=== PATIENT | female | born 1965 | race Caucasian/White ===

== ENCOUNTER 2018-07-28 10:37 | Inpatient (IN) | payer MEDICAID ==
[~2018-07-28] VITALS: Ht 162.6 cm; Wt 97.5 kg
[~2018-07-28 10:37] MED LIST: ALBUTEROL2.5 MG/3 M IH; ALDACTONE100 MG; ALDACTONE100 MG PO; ATENOLOL 25 MG25 M1 PO; ATIVAN0.5 MG PO; ATIVAN1 MG; ATIVAN1 MG PO; AVELOX 400 MG400 MG PO; BACLOFEN 10 MG10 MG PO; BENADRYL PO; BUMEX2 MG PO; BUSPAR; BUSPAR 5 MG TABL5 M1; BUSPAR 5 MG TABL5 M1 PO; BUSPIRONE HCL10 MG PO; CIPROFLOXACIN500 M1 PO; CIPROFLOXACIN500 M3 PO; CLONAZEPAM 0.50.5 M1 PO; CLONAZEPAM PO; CONSTULOSE10 GM/152 PO; DIFLUCAN150 MG PO; DILAUDID 4 MG TA4 M1 PO; DILAUDID 4 MG TA4 MG PO; DIPHENHYDRAMINE25 M3 PO; DULCOLAX PO; EFFEXOR XR150 MG PO; FLONASE 0.05%50 MCG NASAL; GENERLAC10 GM/15 M PO; GLUCOPHAGE1000 MG; GLUCOPHAGE1000 MG PO; GUAIFENESIN/COD10 M1 PO; HCTZ; HUMALOG100 UNIT/1; HUMULIN 50100 UNIT/1 SQ; HYDROCHLOROTH12.5 M1 PO; HYDROCHLOROTHIA25 M1; HYDROCHLOROTHIA25 M1 PO; JANUVIA100 MG; JANUVIA100 MG PO; K-DUR10 MEQ PO; KEFLEX250 MG/5 M PO; KEFLEX500 MG PO; KLOR-CON 10 ER10 MEQ PO; KLOR-CON 1010 MEQ; LACTULOSE10 GM/15 M PO; LANTUS; LANTUS SC; LANTUS SUBQ; LASIX 40 MG TAB40 M1 PO; LASIX 40 MG TAB40 MG PO; LEVAQUIN 500 M500 M2 PO; LEVAQUIN 500 M500 MG PO; LEVOTHROID50 MCG; LISINOPRIL10 MG PO; LISINOPRIL2.5 MG; LISINOPRIL2.5 MG PO; LYRICA 75 MG CA75 MG; LYRICA 75 MG CA75 MG PO; MACROBID 100 M100 M1 PO; MACROBID PO; MAG-OX 400 TAB400 M1 PO; MEDROLDOSEPACK PO; METOCLOPRAMIDE 55 MG PO; MIRALAX; MUCINEX D TABL1 EAC1; MUCINEX600 MG; MULTIVITAMINS1 EAC7 PO; NABUMETONE 750750 M1 PO; NAPROSYN500 MG PO; NATEGLINIDE PO; NOVOLIN 70100 UNIT/1 IJ; NOVOLIN 70100 UNIT/5 SQ; NOVOLOG100 UNIT/1; NOVOLOG100 UNIT/1 SQ; PROTONIX40 M2 PO; PYRIDIUM200 MG PO; REGLAN 10 MG TA10 M1; REGLAN 5 MG TAB5 M1 PO; ROBAXIN500 MG PO; RU 500; SENNA; STARLIX; SYNTHROID50 MCG PO; ZOFRAN4 MG PO
[2018-07-28 10:52] VITALS: BP 131/63
[2018-07-28] MEDS ORDERED: ASPIR 8181 MG PO (10:57)
[2018-07-28] MEDS ORDERED: BUMETANIDE0.25 MG/1 PO (10:57)
[2018-07-28] MEDS ORDERED: ROBITUSSIN100 MG/53 PO (10:58)
[2018-07-28] MEDS ORDERED: FLONASE 0.05%50 MCG NASAL (10:58)
[2018-07-28] MEDS ORDERED: DOXYCYCLINE 10100 MG PO (10:58)
[2018-07-28] MEDS ORDERED: HUMALOG100 UNIT/1 SUBQ (10:59)
[2018-07-28] MEDS ORDERED: LANTUS SUBQ ×2 (10:59→13:25)
[2018-07-28] MEDS ORDERED: LEVOXYL75 MCG PO (10:59)
[2018-07-28] MEDS ORDERED: MUCINEX D TABL1 EAC1 PO (11:00)
[2018-07-28] MEDS ORDERED: POTASSIUM20 PO (11:00)
[2018-07-28 11:42] LABS: ABSOLUTE EOSINOPHILS 0.1 thou/uL (0.0-0.7); ABSOLUTE LYMPHOCYTES 1.7 thou/uL (0.8-5.3); ABSOLUTE MONOCYTES 0.6 thou/uL (0.0-1.2); ABSOLUTE NEUTROPHILS 7.6 thou/uL (1.6-8.1); BASOPHILS 0.2 %; EOSINOPHILS 1.4 %; HEMATOCRIT 41.2 % (37.0-47.0); HEMOGLOBIN 14.3 gm/dL (12.0-15.0); LYMPHOCYTES 16.5 %; MCH 31.9 pg (26.0-34.0); MCHC 34.7 g/dL (28.0-37.0); MCV 92.1 fL (80.0-100.0); MONOCYTES 6.1 %; MPV 7.8 fl. (7.2-11.1); NUCLEATED RBCS 0 /100WBC; PLATELET COUNT* 134 thou/uL (150-400); POLYS 75.8 %; RBC 4.47 mil/uL (4.20-5.00); RDW-CV 14.1 % (10.5-14.5)
[2018-07-28 11:58] LABS: CALCIUM 9.4 mg/dL (8.5-10.1); CREATININE 1.6 mg/dL (0.6-1.3); POTASSIUM 4.2 mmol/L (3.5-5.1)
[2018-07-28 12:16] LABS: ALBUMIN 2.1 g/dL (3.4-5.0); TOTAL BILIRUBIN 1.8 mg/dL (<0.1-1.0); TOTAL PROTEIN 7.1 g/dL (6.4-8.2)
[2018-07-28] MEDS ORDERED: BUMETANIDE2 M1 PO (13:26)
[2018-07-28] MEDS ORDERED: MUCINEX600 MG PO (13:27)
[2018-07-28] MEDS ORDERED: XIFAXAN550 MG PO (13:27)
[2018-07-28] MEDS ORDERED: ALDACTONE50 MG PO (13:28)
[2018-07-28] MEDS ORDERED: OXYCODONE HCL 55 MG PO (13:28)
[2018-07-28] MEDS ORDERED: XIFAXAN 200 MG200 MG PO (13:28)
[2018-07-28 13:53] VITALS: BP 132/74
[2018-07-28 13:55] VITALS: BP 132/74
[2018-07-28 16:17] LABS: URINE BILIRUBIN NEGATIVE (Negative); URINE BLOOD TRACE (Negative); URINE CLARITY CLEAR; URINE COLOR YELLOW; URINE GLUCOSE-RANDOM 1+ (Negative); URINE KETONES NEGATIVE (Negative); URINE LEUKOCYTES-REFLEX NEGATIVE (Negative); URINE NITRITE-REFLEX NEGATIVE (Negative); URINE PROTEIN NEGATIVE (Negative); URINE UROBILINOGEN 0.2 E.U./dl (0.2-1.0)
[2018-07-28 16:25] LABS: AMP/METHAMP Negative (Negative); BARBITURATES Negative (Negative); BENZODIAZEPINES Negative (Negative); COCAINE Negative (Negative); METHADONE Negative (Negative); OPIATES POSITIVE (Negative); PCP Negative (Negative); THC Negative (Negative)
--- NOTE | 2018-07-28 20:13 | NUR ---
ADMITTED TO [facility] THIS AFTERNOON, ORIENTED TO ROOM AND CALL LIGHT. UA/UDS SENT TO LAB, ELEVATED LACTATE REPORTED TO EMILY, ONE LITER GIVEN, CLARISSA IV VANC WELL W/O S/S ADR. VSS, CARE PLAN REVIEWED WITH PATIENT, DENIES QUESTIONS AT THIS TIME.
[2018-07-28 23:30] VITALS: BP 109/52
[2018-07-29 04:04] LABS: ABSOLUTE BASOPHILS 0.1 thou/uL (0.0-0.2); ABSOLUTE EOSINOPHILS 0.4 thou/uL (0.0-0.7); ABSOLUTE LYMPHOCYTES 2.8 thou/uL (0.8-5.3); ABSOLUTE MONOCYTES 0.9 thou/uL (0.0-1.2); ABSOLUTE NEUTROPHILS 8.1 thou/uL (1.6-8.1); BASOPHILS 0.9 %; EOSINOPHILS 3.4 %; HEMATOCRIT 38.7 % (37.0-47.0); HEMOGLOBIN 13.2 gm/dL (12.0-15.0); LYMPHOCYTES 22.9 %; MCH 31.3 pg (26.0-34.0); MCHC 34.1 g/dL (28.0-37.0); MCV 91.7 fL (80.0-100.0); MONOCYTES 7.1 %; MPV 7.8 fl. (7.2-11.1); NUCLEATED RBCS 0 /100WBC; PLATELET COUNT* 126 thou/uL (150-400); POLYS 65.7 %; RBC 4.22 mil/uL (4.20-5.00); RDW-CV 14.2 % (10.5-14.5); WBC 12.3 thou/uL (4.0-11.0)
[2018-07-29 04:12] LABS: CALCIUM 8.3 mg/dL (8.5-10.1); CREATININE 1.3 mg/dL (0.6-1.3); POTASSIUM 3.7 mmol/L (3.5-5.1)
--- NOTE | 2018-07-29 07:35 | NUR ---
PATIENT SLEPT MOST OF THE NIGHT. IV FLUIDS CONTINUE TO INFUSE AT 80 ML/HR. PATIENT WAS GIVEN PAIN MEDICINE THREE TIMES THIS SHIFT. WILL CONTINUE TO MONITOR.
[2018-07-29 09:30] VITALS: BP 101/49
[2018-07-29] MEDS ORDERED: ZYVOX600 MG PO (15:34)
[2018-07-29 15:35] VITALS: BP 101/49
[2018-07-29 16:23] VITALS: BP 103/41
[2018-07-29 16:26] VITALS: BP 101/49
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
[2018-07-29 17:27] VITALS: BP 101/49
--- NOTE | 2018-07-29 17:30 | NUR ---
PATIENT HAS BEEN ALERT AND ORIENTED TODAY VERY PLEASANT, SOME CONCERNS WITH GOING HOME, "HAS THINGS TO DO AT HOME." PATIENT HAS PAIN THAT IS CONTROLLED WITH ORAL PAIN MEDICATIONS. PATIENT IS BEING DISCHARGED TO HOME. DISCHARGE INSTRUCTIONS AND PRESCRIPTIONS GIVEN, WITH QUESTIONS ANSWERED. LEFT VIA WHEELCHAIR TO HOME.
--- NOTE | 2018-07-30 07:56 | CON ---
[address] [address] CONSULTATION Name: CHAS GOMEZ Room: [address] IN ..#: [id number] Admission: 07/28/18 Attend Phys: Marcio Dobson MD Discharge: 07/29/18 Date of : 61 Report #: [id number] THIS REPORT FOR: //name// CC: Marcio Weldon [place] DATE OF SERVICE: 07/29/2018 Infectious Disease Consultation ATTENDING PHYSICIAN: Marcio Dobson MD REASON FOR EVALUATION: Right lower extremity skin and soft tissue infection with cellulitis. HISTORY OF PRESENT ILLNESS: Chart reviewed, patient examined. This is a 52-year-old woman with diabetes mellitus type 1 diagnosed at age 16, has ongoing issues with right lower extremity inflammatory eruption. She was hospitalized recently, was discharged on IV vancomycin. She sustained an injury result of a fall forward, striking her pretibial site developed an ulceration, worsened pain, inflammatory red signs and symptoms. She was continued on IV antibiotics. It is unclear if she has had fevers or significant pulmonary or gastrointestinal related complaints. She is not encephalopathic. ALLERGIES: Numerous including CONTRAST DYE, TRAMADOL, PENICILLIN, SULFA, HALDOL, TETRACYCLINE, TRAMADOL, KETOROLAC. CURRENT MEDICINES: Include guaifenesin, spironolactone, aspirin, levothyroxine, pantoprazole, vancomycin, budesonide, rifaximin, analgesics, and antiemetics. PAST MEDICAL HISTORY: Diabetes mellitus type 1, history of recurrent urinary tract infections, hypothyroidism, hypertension, renal insufficiency, chronic back pain, seizures, and hernia repair. SOCIAL HISTORY: A 25 pack-year smoker. No ethanol, no illicit drug use. FAMILY HISTORY: Noncontributory. REVIEW OF SYSTEMS: As above. PHYSICAL EXAMINATION: GENERAL: Bcuv-[id number]-[id number] distress secondary to the left lower extremity pain, appears somewhat chronically ill. She is pleasant and cooperative, moderate distress. VITAL SIGNS: Temperature 98.5, pulse 69, respirations 16, blood pressure 101/49. [place] [address] CONSULTATION Name: CHAS GOMEZ Room: [address]#: [id number] Admission: 07/28/18 Attend Phys: aMrcio Dobson MD Discharge: 07/29/18 Date of : 61 Report #: [id number] SKIN: Warm, dry. HEENT: Unremarkable. NECK: Supple. LUNGS: Clear to auscultation. HEART: Regular. I do not appreciate murmur. ABDOMEN: Soft, obese, nontender. EXTREMITIES: Right lower extremity has ickoqwng-rz-sxqigb inflammatory changes noted to below the knee. She has got an ulceration involving the junction of the distal medial third of her pretibial site anterior aspect. There is associated tenderness. There is eschar. GENITOURINARY: Deferred. RECTAL: Deferred. LABORATORY DATA: Blood cultures sterile thus far. Most recent CBC: White count 12.3, hemoglobin 13.2, hematocrit 38.7, platelets of 126. Electrolytes: Sodium 138, potassium 3.7, chloride 104, bicarbonate is 31, anion gap of 3, BUN and creatinine 23 and 1.3. Urine culture was unremarkable. Lactic peaked at 3.0 initially. IMAGING DATA: X-ray of the tib-fib was otherwise unremarkable for any osseous abnormalities. ASSESSMENT: Right lower extremity skin and soft tissue infection, cellulitis. The patient had multiple hypersensitivities. We will continue therapy with linezolid. At this point we will; however, add compression to the right lower extremity. She was encouraged to stay off her feet as much as possible. I guess given her social situation, she really needs to be discharged. She does assure me that there is people around that could attend to some of her needs. We will see her in the office in followup. <ELECTRONICALLY SIGNED> By: David Abarca MD 07/30/18 [id number] Abarca MD /nt
[2018-09-14] MEDS ORDERED: FOLIC ACID1 MG PO (05:00)
== END 2018-07-29 17:43 | disposition home or self-care (01) | DRG 603 ==
LOC: M.ERS 10:37 → M.TBA-ER 12:36 → M.3W 13:38
PROVIDERS: Physician Assistant Surgical; ADMIT Internal Medicine
DX: L03.115 Cellulitis of right lower limb (principal); R65.10 Systemic inflammatory response syndrome (SIRS) of non-infectious origin without acute organ dysfunction; E87.1 Hypo-osmolality and hyponatremia; E03.9 Hypothyroidism, unspecified; I10 Essential (primary) hypertension; G89.29 Other chronic pain; M54.9 Dorsalgia, unspecified; G40.909 Epilepsy, unspecified, not intractable, without status epilepticus; S00.83XA Contusion of other part of head, initial encounter; W01.0XXA Fall on same level from slipping, tripping and stumbling without subsequent striking against object, initial encounter; F17.210 Nicotine dependence, cigarettes, uncomplicated; E10.65 Type 1 diabetes mellitus with hyperglycemia; Z53.29 Procedure and treatment not carried out because of patient's decision for other reasons; Z87.440 Personal history of urinary (tract) infections; Z86.14 Personal history of Methicillin resistant Staphylococcus aureus infection; Z90.710 Acquired absence of both cervix and uterus; Z90.722 Acquired absence of ovaries, bilateral; Z79.899 Other long term (current) drug therapy; Z79.82 Long term (current) use of aspirin; Z79.4 Long term (current) use of insulin; Z88.8 Allergy status to other drugs, medicaments and biological substances; Z91.041 Radiographic dye allergy status; Z91.013 Allergy to seafood; Z88.0 Allergy status to penicillin; Z88.2 Allergy status to sulfonamides; Z88.1 Allergy status to other antibiotic agents; Y93.89 Activity, other specified; Y92.89 Other specified places as the place of occurrence of the external cause; Y99.8 Other external cause status

== ENCOUNTER 2018-09-13 15:12 | Inpatient (IN) | payer MEDICAID ==
[~2018-09-13] VITALS: Ht 160 cm; Wt 104.3 kg
--- NOTE | ~2018-09-13 | CON ---
[address] [address] CONSULTATION Name: CHAS WHEELER Room: [address] IN M.R.#: [id number] Admission: 09/13/18 Attend Phys: Kiet Jacobo Discharge: 09/16/18 Date of : 61 Report #: [id number] THIS REPORT FOR: //name// CC: [facility] physician/PCP Jelly Jacobson MD DATE OF SERVICE: 09/14/2018 REFERRING PHYSICIAN: Dr. Jacobson. The patient has no primary care provider at this time. REASON FOR CONSULTATION: Diarrhea. IMPRESSION: 1. Nausea, vomiting, diarrhea with recent antibiotic exposure -- suspect Clostridium difficile colitis. 2. Dehydration secondary to the same. 3. 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 4. Diabetes mellitus, hypothyroidism, and obesity, all contributing to #3. 5. Recent right lower extremity cellulitis requiring antibiotics. RECOMMENDATIONS: 1. Agree with the patient being admitted to hospital for IV fluids, IV antibiotics in the form of vancomycin and Flagyl at this time. 2. C. diff precautions for now. 3. No antidiarrheal medications, but Bentyl and Levsin ae okay. 4. Clear liquid diet, advance as tolerated. 5. Continue her dose of Aldactone, Lasix and rifaximin as directed. 6. Upper and lower endoscopy as an outpatient unless her C. diff is negative and she has persistent diarrhea. 7. She is to establish a PCP outside the hospital upon discharge. I have discussed these plans and present plans with the patient as well and she is agreeable. HISTORY OF PRESENT ILLNESS: The patient is a pleasant 52-year-old white female with decompensated liver disease secondary to nonalcoholic fatty liver, who was admitted to hospital with complaints of nausea, vomiting, diarrhea, and abdominal pain. She had a lot of gas and bloating as well. She has been on antibiotics for last 10 days for cellulitis for which she was hospitalized earlier this year in July for right lower extremity cellulitis. She does have problem with fevers and chills as well. She normally does not have issues with diarrhea. She is currently [place] [address] CONSULTATION Name: CHAS WHEELER Room: [address]#: [id number] Admission: 09/13/18 Attend Phys: Kiet Jacobo Discharge: 09/16/18 Date of : 61 Report #: [id number] encephalopathy in the form of Xifaxan. She has been here and in [place] where she was diagnosed with liver disease and currently is going to be residing somewhere in [place]. She is currently in process of getting Medicaid or has Medicaid at this time. She is trying to establish with a primary care provider. She states her last endoscopic studies were performed over 3 years ago and were possibly performed at [facility] on the [place]. She has a personal history of colon polyps. She has had a number of colon polyps in the past and is actually due for endoscopic evaluation at this time. She is admitted to hospital for further evaluation and treatment. ALLERGIES: MULTIPLE AND INCLUDE HALDOL, IV CONTRAST ALLERGY, WHICH CAUSED ANAPHYLAXIS; FISH PROTEINS WHICH ALSO CAUSED ANAPHYLAXIS, PENICILLIN WITH ANAPHYLAXIS. SULFA WITH ITCHING, A RASH WITH TETRACYCLINE, TRAMADOL CAUSED ANAPHYLACTIC SHOCK AND TORADOL. CURRENT MEDICATIONS: Include levothyroxine 75 mcg once daily, aspirin 81 mg daily, Flonase 1 spray twice to nares, insulin 100 units of Humalog 20 units subQ before meals, potassium 10 mEq daily, Lantus insulin 23 units at bedtime, Bumex 2 mg twice daily, guaifenesin 600 mg q.12 hours, rifaximin 550 mg twice daily, spironolactone 50 mg twice daily and lactulose p.r.n. PAST MEDICAL AND SURGICAL HISTORY: Remarkable for end-stage liver disease secondary to nonalcoholic fatty liver, documented by biopsy. She has history of hypothyroidism, diabetes, hypertension. She has problem with ascites and encephalopathy from the nonalcoholic fatty liver. She has had multiple surgeries on her abdomen and she states close to 21 surgeries on her abdomen. She has had abdominal wound, which has required multiple interventions in the past. She had hysterectomy. She has had ovarian tumor removed, history of seizure disorder and hernia repair. SOCIAL HISTORY: She does smoke a pack per day, does not drink any alcohol nor does she have any history of the same. FAMILY HISTORY: Negative. PHYSICAL EXAMINATION: GENERAL: Revealed ill-appearing 52-year-old white female who appears older than stated age. CARDIOPULMONARY EXAMINATION: Revealed a regular rate and rhythm. Lungs were clear. ABDOMEN: Soft. She does have a large area in the middle portion of her abdomen where she had previous hernia and multiple interventions performed on the same. EXTREMITIES: She has 2-3+ peripheral edema. [address] [address] CONSULTATION Name: CHAS WHEELER [address]: [address] [id number] Admission: 09/13/18 Attend Phys: Kiet Jacobo Discharge: 09/16/18 Date of : 61 Report #: [id number] LABORATORY DATA: Her laboratory tests from the revealed a white count of 13.2, hemoglobin 11.9, platelet count 81,000, MCV is 91.2 and RDW is 15.6. Protime is 15.4 with an INR of 1.5. Her sodium 140, potassium 3.9, chloride 107, bicarbonate 23, BUN is 13, creatinine 0.8, GFR 75. Total bilirubin from 1.3, alkaline phosphatase is 123, AST is 28, ALT 16, albumin is 1.8. CT scan of the abdomen and pelvis performed on 09/13/2018 revealed bibasilar atelectasis. She does have a small nodular liver compatible with cirrhosis with some ascites around the liver. Spleen is mildly prominent with varicosities, felt to represent portal hypertension within epigastric and perisplenic areas. The pancreas appeared normal. She does have large varicosities extending along the retroperitoneum from cirrhosis and portal hypertension. Kidneys appeared normal. Gallbladder is removed. There is mild prominence of the common bile duct felt to be related to prior cholecystectomy. She does have some mild panniculitis. There is no abnormal fluid collection seen. There is wall thickening noted from the level of mid transverse colon with less prominent findings compatible with colitis along the left colon as well. There is minimal free fluid noted in the right pelvis. DISCUSSION: At the present time, the patient has problems with diarrhea and I suspect she probably got Clostridium difficile or antibiotic-associated diarrhea. We will proceed with giving vancomycin and Flagyl at this point in time and monitor response to the same. We will continue to follow her as an outpatient. I have discussed these plans with the patient as well and she is agreeable to the same. By: [id number] Frank DO /lois
[~2018-09-13 15:12] MED LIST changes: +ALDACTONE50 MG PO; +ASPIR 8181 MG PO; +BUMETANIDE0.25 MG/1 PO; +BUMETANIDE2 M1 PO; +DOXYCYCLINE 10100 MG PO; +HUMALOG100 UNIT/1 SUBQ; +LEVOXYL75 MCG PO; +MUCINEX D TABL1 EAC1 PO; +OXYCODONE HCL 55 MG PO; +POTASSIUM20 PO; +ROBITUSSIN100 MG/53 PO; +XIFAXAN 200 MG200 MG PO; +XIFAXAN550 MG PO; +ZYVOX600 MG PO
[2018-09-13 15:19] VITALS: BP 129/48
[2018-09-13 18:25] LABS: ABSOLUTE BASOPHILS 0.2 thou/uL (0.0-0.2); ABSOLUTE EOSINOPHILS 0.4 thou/uL (0.0-0.7); ABSOLUTE LYMPHOCYTES 2.3 thou/uL (0.8-5.3); ABSOLUTE MONOCYTES 0.6 thou/uL (0.0-1.2); ABSOLUTE NEUTROPHILS 9.7 thou/uL (1.6-8.1); BASOPHILS 1.4 %; EOSINOPHILS 2.7 %; HEMATOCRIT 35.5 % (37.0-47.0); HEMOGLOBIN 11.9 gm/dL (12.0-15.0); LYMPHOCYTES 17.3 %; MCH 30.6 pg (26.0-34.0); MCHC 33.5 g/dL (28.0-37.0); MCV 91.2 fL (80.0-100.0); MONOCYTES 4.9 %; MPV 8.3 fl. (7.2-11.1); NUCLEATED RBCS 0 /100WBC; PLATELET COUNT* 81 thou/uL (150-400); POLYS 73.7 %; RDW-CV 15.6 % (10.5-14.5); WBC 13.2 thou/uL (4.0-11.0)
[2018-09-13 18:31] LABS: ANION GAP 8 mmol/L (7-16); BUN 13 mg/dL (7-18); CALCIUM 8.4 mg/dL (8.5-10.1); CHLORIDE 106 mmol/L (98-107); CO2 23 mmol/L (21-32); CREATININE 0.9 mg/dL (0.6-1.3); GLUCOSE 133 mg/dL (70-99); POTASSIUM 4.2 mmol/L (3.5-5.1); SODIUM 137 mmol/L (136-145)
[2018-09-13 18:40] LABS: APTT 25.6 Seconds (25.0-31.3); INR 1.5; PROTIME 15.4 Seconds (9.20-11.50)
[2018-09-13 18:41] LABS: ALBUMIN 1.8 g/dL (3.4-5.0); ALKALINE PHOSPHATASE 127 U/L (46-116); LIPASE 191 U/L (73-393); NT-PRO BRAIN NAT PEPTIDE 458 pg/mL (<300); SGOT 29 U/L (15-37); SGPT 16 U/L (30-65); TOTAL BILIRUBIN 1.3 mg/dL (<0.1-1.0); TOTAL PROTEIN 5.9 g/dL (6.4-8.2); TROPONIN-I LEVEL <0.06 ng/mL (<0.06)
[2018-09-13 22:56] VITALS: BP 113/59
[2018-09-14 04:50] LABS: HEMATOCRIT 34.7 % (37.0-47.0); HEMOGLOBIN 11.6 gm/dL (12.0-15.0); MCH 30.8 pg (26.0-34.0); MCHC 33.3 g/dL (28.0-37.0); MCV 92.5 fL (80.0-100.0); MPV 8.7 fl. (7.2-11.1); RBC 3.76 mil/uL (4.20-5.00); RDW-CV 15.8 % (10.5-14.5)
[2018-09-14] MEDS ORDERED: KLOR-CON 1010 MEQ PO (04:54)
[2018-09-14] MEDS ORDERED: LANTUS100 UNIT/M SUBQ (04:56)
[2018-09-14] MEDS ORDERED: HUMALOG100 UNIT/1 SUBQ (04:58)
[2018-09-14] MEDS ORDERED: MULTIPLE VITAM1 EAC2 PO (05:00)
[2018-09-14 05:42] LABS: ALBUMIN 1.8 g/dL (3.4-5.0); CALCIUM 8.2 mg/dL (8.5-10.1); CREATININE 0.8 mg/dL (0.6-1.3); POTASSIUM 3.9 mmol/L (3.5-5.1); TOTAL BILIRUBIN 1.3 mg/dL (<0.1-1.0); TOTAL PROTEIN 5.6 g/dL (6.4-8.2)
[2018-09-14 08:10] VITALS: BP 126/68
--- NOTE | 2018-09-14 11:21 | EKG ---
[place] [address] ELECTROCARDIOGRAM REPORT Name: CHAS WHEELER Room: [address] ADM IN .R.#: [id number] Admission: 09/13/18 Attend Phys: Kiet Jacobo Discharge: Date of : 61 Report #: [id number] THIS REPORT FOR: //name// [facility] ED Test Date: 2018-09-13 Test Time: 15:17:02 Pat Name: CHAS WHEELER Department: Room: [facility] Gender: F Immunopathologist: GYPSY : 1965 Requested By: Aria Hodges Order Number: [id number] MD: Adan Whitten Measurements Intervals Ackerman Rate: 80 P: 81 OR: 162 QRS: 48 QRSD: 98 T: 60 QT: 390 QTc: 450 Interpretive Statements Sinus rhythm Probable left atrial enlargement Low voltage, precordial leads Baseline wander in lead(s) V3 Compared to ECG 03/07/2012 16:51:30 Low QRS voltage now present Electronically Signed On 09-14-2018 11:21:04 ELECTRIC WELDER HELPER by Adan Whitten [email or web address] <ELECTRONICALLY SIGNED> By: Adan Whitten MD, FAC 09/14/18 1121 [id number] [id number] Adan Whitten MD, FAC /EPI
[2018-09-14 16:00] VITALS: BP 131/74
--- NOTE | 2018-09-14 16:30 | NUR ---
SW attempted to meet pt to complete initial assessment but pt was in the shower. From previous record, pt lived in an apt independently and has family/friend support nearby. SW to continue to follow to assist with safe dc planning.
--- NOTE | 2018-09-14 18:13 | NUR ---
PATIENT HAS BEEN ALERT AND ORIENTED TODAY. UNCOOPERATIVE WITH CARE, REFUSING TEST AND IV. VITAL SIGNS ARE STABLE ON ROOM AIR, UP AD CAMILLE IN ROOM, EDEMA IN LOWER EXTREMETIES. CLEAR LIQUID DIET, PATIENT SAYS NOT TOLERATING WELL ENOUGH TO ADVANCE. CALL LIGHT IS IN REACH, WILL CONTINUE TO MONITOR.
[2018-09-14 20:00] VITALS: BP 134/80
--- NOTE | 2018-09-15 05:24 | NUR ---
NEW IV STARTED IN RT THUMB FOR PATIENT. PT GIVEN MORPHINE 2MG IV FOR ABDOMINAL PAIN RATING IT 6-7/10. PT SLEPT THE REST OF THE NIGHT. PT REFUSING AM LABS. PT UP AD CAMILLE IN ROOM. PT SAID SHE HAD THREE EPISODES OF LOOSE STOOLS SINCE ADMISSION. FREQUENTLY USED ITEMS AND CALL LIGHT WITHIN REACH. SIDERAILS UPX2. WILL CONTINUE TO MONITOR.
[2018-09-15 08:15] VITALS: BP 108/34
[2018-09-15 15:35] VITALS: BP 112/48
--- NOTE | 2018-09-15 17:15 | NUR ---
PATIENT RESTING IN BED. PATIENT HAS COMPLAINTS OF ABDOMINAL PAIN, TREATED ADEQUATELY WITH MEDICATION. PATIENT IS TOLERATING SOFT DIET. PATIENT DENIES ANY BOWEL MOVEMENTS THIS SHIFT. PATIENT HAD NOSE BLEED THIS AFTERNOON WHICH HAS SUBSIDED, DR HURD AWARE. PATIENT REFUSED LABS TODAY, DR HURD AND DR BELTRÁN AWARE. PATIENT DENIES ANY NEEDS AT THIS TIME. CALL LIGHT WITHIN REACH. WILL CONTINUE TO MONITOR.
[2018-09-15 23:57] VITALS: BP 121/53
[2018-09-16 02:11] LABS: GLYCOHEMOGLOBIN (HGB A1C) 8.1 % (4.8-5.6)
--- NOTE | 2018-09-16 03:54 | NUR ---
PATIENT SLEPT WELL DURING THIS SHIFT. PT REQUESTED PAIN MEDICATION X1 AND RECEIVED OXYIR 5MG. PT RETURNED TO SLEEP AFTER THIS. PT REFUSED HUMALOG WITH HS MEDICATIONS BUT TOOK LANTUS 30UNITS. PT UP AD CAMILLE IN ROOM. PT DENIES ANY BOWEL MOVEMENTS DURING THIS SHIFT. PT WITH ANTIBIOTICS INFUSING IN IV IN RT THUMB PER DR ORDER. PT REFUSING LABS THIS MORNING. PT REMAINS IN SPECIAL CONTACT ISOLATION. FREQUENTLY USED ITEMS AND CALL LIGHT WITHIN REACH. SIDERAILS UPX2. WILL CONTINUE TO MONITOR.
[2018-09-16 08:05] VITALS: BP 104/44
--- NOTE | 2018-09-16 11:01 | NUR ---
SW met with pt to complete initial assessment, introduce self, and SW role. Pt alert, oriented. Pt continues to lives in an apt independently. Pt has support in a sister and a brother who both live in the area. Pt did not express any needs at this time. SW to continue to follow to assist with safe dc planning.
[2018-09-16] MEDS ORDERED: XIFAXAN550 MG PO (14:27)
[2018-09-16] MEDS ORDERED: FLAGYL500 M1 PO (14:28)
[2018-09-16] MEDS ORDERED: FIRVANQ50 MG/1 ML PO (14:28)
[2018-09-16] MEDS ORDERED: ALDACTONE50 MG PO (14:28)
--- NOTE | 2018-09-16 14:28 | NUR ---
Nutrition: Pt was seen for high BMI. Pt stated she usually weighs 180#, but wt is up above 200# d/t swelling. 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 She did request pudding and yogurt - RD ordered it from the kitchen. Pt stated she is going home later today. Albumin 1.8, prealb 9.3. Encouraged good protein intake (pudding/yogurt/eggs/etc). No other nutrition interventions at this time. Encouraged pt to call RD with further questions/needs.
[2018-09-16] MEDS ORDERED: KLOR-CON 1010 MEQ PO (14:29)
[2018-09-16] MEDS ORDERED: LANTUS100 UNIT/M SUBQ (14:29)
[2018-09-16] MEDS ORDERED: BUMETANIDE2 M1 PO (14:29)
[2018-09-16] MEDS ORDERED: FLONASE 0.05%50 MCG NASAL (14:29)
[2018-09-16] MEDS ORDERED: ASPIR 8181 MG PO (14:29)
[2018-09-16] MEDS ORDERED: SYNTHROID50 MCG PO (14:31)
[2018-09-16] MEDS ORDERED: MULTIPLE VITAM1 EAC2 PO (14:31)
[2018-09-16] MEDS ORDERED: HUMALOG100 UNIT/1 SUBQ (14:31)
[2018-09-16] MEDS ORDERED: KEFLEX500 M1 PO (14:32)
[2018-09-16] MEDS ORDERED: FLEXERIL PO (14:44)
[2018-09-16 15:44] VITALS: BP 104/44
[2018-09-16] MEDS ORDERED: FOLIC ACID1 MG PO (15:57)
[2018-09-16] MEDS ORDERED: LANTUS SUBQ (15:58)
[2018-09-16] MEDS ORDERED: MUCINEX600 MG PO (15:58)
[2018-09-16 16:40] VITALS: BP 104/44
--- NOTE | 2018-09-16 17:20 | NUR ---
PATIENT DISCHARGED TO HOME. DISCHARGE PAPERS REVIEWED AND SIGNED. PRESCRIPTIONS AND INFORMATION SHEETS GIVEN. VANCOMYCIN CALLED TO PHARMACY AND IS AVAILABLE AT [facility] [address]. IV REMOVED. PATIENT ASSISTED WITH BELONGINGS AND CLOTHING. PATIENT DENIES ANY FURTHER NEEDS. PATIENT TAKEN BY WHEELCHAIR TO EXIT. LEFT WITH FAMILY FREIND.
--- NOTE | 2018-09-20 14:00 | NUR ---
NOTIFIED EARLIER BY MED STAFF OFFICE THAT THEY WERE CALLED THAT PT'S RX COULDN'T BE FILLED AT HER PHARMACY (PT DISCHARGED ON 09/16). CALLED [facility] [phone]. THEY ARE UNABLE TO FILL RX WRITTEN BY DR HURD HE APPARENTLY HAS NOT COMPLETED SOME PAPERWORK REQUIRED BY MEDICAID. DR. WINN NOTIFIED AND OKAY TO FILL THE SAME RX USING HIS NAME. PHARMACY SAID THEY CAN DO THAT, THEY WILL CONTACT THE PT ONCE THEY ARE READY TO BE PICKED UP. CALLED PT ([phone]) TO NOTIFY HER. SHE SAID SHE THOUGHT HER SISTER COULD GO PICK THEM UP TOMORROW FOR HER. SHE SAID SHE HAD JUST ENOUGH INSULIN AT HOME TO MANAGE WITHOUT THE NEW RX. ENCOURAGED HER TO SEE IF THERE WAS SOMEONE THAT COULD GO [employer] MANAGER HER RX TODAY SO SHE COULD START TAKING ALL OF THEM.
== END 2018-09-16 17:20 | disposition home health service (06) | DRG 372 ==
LOC: M.ERS 15:12 → M.TBA-ER 20:55 → M.3W 20:55
PROVIDERS: Emergency Medicine; Internal Medicine Gastroenterology; Personal Emergency Response Attendant; ADMIT Internal Medicine
DX: A04.72 Enterocolitis due to Clostridium difficile, not specified as recurrent (principal); N39.0 Urinary tract infection, site not specified; Z68.41 Body mass index [BMI] 40.0-44.9, adult; I13.0 Hypertensive heart and chronic kidney disease with heart failure and stage 1 through stage 4 chronic kidney disease, or unspecified chronic kidney disease; L03.115 Cellulitis of right lower limb; I50.9 Heart failure, unspecified; Z86.14 Personal history of Methicillin resistant Staphylococcus aureus infection; E11.51 Type 2 diabetes mellitus with diabetic peripheral angiopathy without gangrene; E03.9 Hypothyroidism, unspecified; M79.3 Panniculitis, unspecified; G89.29 Other chronic pain; M54.9 Dorsalgia, unspecified; Z16.23 Resistance to quinolones and fluoroquinolones; E86.0 Dehydration; E66.9 Obesity, unspecified; N18.2 Chronic kidney disease, stage 2 (mild); K72.90 Hepatic failure, unspecified without coma; Z90.710 Acquired absence of both cervix and uterus; Z79.4 Long term (current) use of insulin; Z79.82 Long term (current) use of aspirin; Z79.899 Other long term (current) drug therapy; Z88.2 Allergy status to sulfonamides; Z88.8 Allergy status to other drugs, medicaments and biological substances; Z91.041 Radiographic dye allergy status; Z88.5 Allergy status to narcotic agent; Z88.0 Allergy status to penicillin; Z91.013 Allergy to seafood; Z82.49 Family history of ischemic heart disease and other diseases of the circulatory system; Z28.21 Immunization not carried out because of patient refusal